=== PATIENT | male | born 1975 | race Two or more races ===

== ENCOUNTER 2024-09-25 11:37 | Emergency (ER) | payer OTHER ==
[~2024-09-25] VITALS: Ht 320 cm; Wt 81.6 kg
[2024-09-25] MEDS ORDERED: DEXAMETHASONE SODIUM PHOSPHATE 4 MG/ML VIAL IV STA (13:03)
[2024-09-25 13:32] LABS: HEMATOCRIT 43.8 % (39.0-48.0); HEMOGLOBIN 15.3 g/dL (13-16.00); MEAN CELL VOLUME 93.4 fL (80.0-100.00); MEAN CORPUSCULAR HEMOGLOBIN 32.5 pg (27.00-32.0); MEAN CORPUSCULAR HGB CONC 34.8 g/dl (32.0-36.0); PLATELET COUNT 293 K/uL (150-450); RED BLOOD COUNT 4.69 M/uL (4.00-6.00); RED CELL DISTRIBUTION WIDTH 13.6 % (11.5-14.5)
[2024-09-25 13:55] LABS: CALCIUM 9.1 mg/dL (8.5-10.1); CREATININE SERUM 0.84 mg/dL (0.70-1.30); GFR 96.33; POTASSIUM 4.13 mEq/L (3.5-5.1)
[2024-09-25] MEDS ORDERED: ORPHENADRINE CITRATE 30 MG/ML AMPUL IM STA (14:52)
== END 2024-09-25 15:12 | disposition home or self-care (01) ==
LOC: ER 11:39
PROVIDERS: General Practice
DX: G62.9 Polyneuropathy, unspecified (principal); M50.20 Other cervical disc displacement, unspecified cervical region